=== PATIENT | female | born 1990 | race Caucasian/White ===

== ENCOUNTER → 2024-05-15 06:27 | Day surgery (SDC) | payer OTHER, SELFPAY | LOC: GI 06:27 | PROVIDERS: ATTENDING PHYSICIAN Internal Medicine Gastroenterology | DX: K52.9 Noninfective gastroenteritis and colitis, unspecified (principal); K62.5 Hemorrhage of anus and rectum; K64.8 Other hemorrhoids; K62.1 Rectal polyp; R14.0 Abdominal distension (gaseous); K31.89 Other diseases of stomach and duodenum; R10.9 Unspecified abdominal pain | CPT/HCPCS: 45380; 43239; 88305 ==